=== PATIENT | female | born 1990 | race Two or more races ===

== ENCOUNTER 2024-05-11 14:55 | Emergency (ER) | payer MEDICAID, SELFPAY ==
[2024-05-11 15:20] VITALS: BP 110/78; PULSE 120; TEMP 37.7; O2SAT 98
--- NOTE | 2024-05-11 16:48 | PD.EDRME ---
Rapid Medical Screening Exam RME Arrival date/time: 05/11/24 14:55 34-year-old female presents emergency department complaints of nausea vomiting fever x 3 days. I have greeted and performed a focused initial assessment of this patient. Initial appropriate labs ordered at this time. A comprehensive ED assessment and evaluation of the patient and analysis of all test and completion of medical decision making process will be conducted by additional ED provider. Chief Complaint: Nausea/Vomiting/Diarrhea Time Seen by Provider: 05/11/24 16:47 Vital signs: Vital Signs Temperature 100 F 05/11/24 15:20 Pulse Rate 120 H 05/11/24 15:20 Blood Pressure 110/78 05/11/24 15:20 Pulse Oximetry (%) 98 05/11/24 15:20 Oxygen Delivery Method Room Air 05/11/24 15:20
[2024-05-11 17:37] VITALS: TEMP 37.7
[2024-05-11] MEDS: ACETAMINOPHEN 500 MG TABLET 1000 MG PO (17:37)
[2024-05-11 17:49] LABS: Collection Type, Urine Clean Catch
[2024-05-11 17:58] LABS: Basophils % (Auto) 0 % (0-2.5); Eosinophils % (Auto) 0 % (0-10); Hematocrit 42.9 % (36.0-46.0); Hemoglobin 14.7 g/dL (12.0-16.0); Immature Granulocytes % (Auto) 0 % (0-0); Immature Granulocytes Auto 0.02 Thou/mm3 (0.00-0.00); Lymphocytes # (Auto) 0.5 Thou/mm3 (1.0-4.8); Lymphocytes % (Auto) 5 % (10-50); Mean Corpuscular HGB Conc 34.3 g/dl (31.0-37.0); Mean Corpuscular Hemoglobin 29.5 pg (25.0-35.0); Mean Corpuscular Volume 86 fL (80-100); Monocytes # (Auto) 0.5 Thou/mm3 (0.0-0.8); Monocytes % (Auto) 5 % (0-12); Neutrophils # (Auto) 8.6 Thou/mm3 (1.8-7.7); Neutrophils % (Auto) 90 % (37-80); Nucleated Red Blood Cell % 0 /100 WBC (0); Platelet Count 298 Thou/mm3 (140-440); RDW Standard Deviation 38.5 fL (36.4-46.3); Red Blood Count 4.98 Miln/mm3 (4.00-5.20); White Blood Count 9.6 Thou/mm3 (3.6-11.0)
[2024-05-11 18:05] LABS: HCG Qualitative,Urine Negative
[2024-05-11 18:06] LABS: Bacteria,Urine Rare; Bilirubin,Urine Negative (Negative); Blood,Urine Negative (Negative); Clarity,Urine Clear (Clear/Hazy); Color,Urine Yellow (Lt Yel-Yel); Glucose, Urine Negative (Negative); Ketones,Urine 2+ (Negative); Leukocyte Esterase,Urine Negative (Negative); Nitrite,Urine Negative (Negative); Protein,Urine 1+ (Neg - Trace); RBC,Urine 3 /hpf (0-3); Specific Gravity,Urine 1.041 (1.001-1.035); Squamous Epithelial Cell,Urine 3 /hpf (0-5); Transitional Epi Cells,Urine < 1 /hpf (0-5); WBC,Urine 3 /hpf (0-5)
[2024-05-11 18:13] LABS: Alanine Aminotransferase 28 U/L (10-49); Albumin, Serum 4.8 gm/dL (3.5-5.0); Albumin/Globulin Ratio 1.5 (1.2-2.2); Alkaline Phosphatase 72 U/L (46-116); Anion Gap 7 (7-16); Aspartate Amino Transferase 26 U/L (0-34); BUN/Creatinine Ratio 19 Ratio (12-20); Bilirubin,Total 1.3 mg/dL (0.3-1.2); Blood Urea Nitrogen 15 mg/dL (9-23); Calcium 9.1 mg/dL (8.3-10.6); Calcium (Corrected) 9.1 mg/dL (8.5-10.1); Carbon Dioxide 27.1 mMol/L (20.0-31.0); Chloride 99 mMol/L (98-107); Creatinine (Component) 0.8 mg/dL (0.6-1.3); Globulin 3.3 gm/dL (2.3-3.5); Glucose 127 mg/dL (74-106); Lipase 35 U/L (12-53); Osmolality,Calculated 269 (275-295); Potassium 3.3 mMol/L (3.4-5.1); Sodium 133 mMol/L (136-145); Total Protein 8.1 gm/dL (5.7-8.2); eGFR > 60 See Note
--- NOTE | 2024-05-11 18:47 | PD.EDNV ---
Nausea/Vomit./Diarrhea-RME/HPI General Chief complaint: Nausea/Vomiting/Diarrhea Stated complaint: n/v diarrhea, dehydrated Time Seen by Provider: 05/11/24 16:47 Arrival date/time: 05/11/24 14:55 Limitations: no limitations RME / HPI RME / HPI Narrative: 05/11/24 14:55 34-year-old female presents emergency department complaints of nausea vomiting fever x 3 days. I have greeted and performed a focused initial assessment of this patient. Initial appropriate labs ordered at this time. A comprehensive ED assessment and evaluation of the patient and analysis of all test and completion of medical decision making process will be conducted by additional ED provider. -------- Dr. [facility] Main ED Evaluation: 34-year-old female with multiple episodes of nausea vomiting and diarrhea for the last 1 day. The patient states that she has vomited 10 times since yesterday. No blood. Nonbilious. Diarrhea is improved today. Subjective fever x 1 day. Patient is taking Tylenol and Motrin. She is having a hard time keeping things down but she is not having any abdominal pain, no back pain, no burning when she pees. Related Data Home Medications ?Medication ?Instructions ?Recorded ?Confirmed prenat.vits,sy,yeb-jevv-zdoqc 1 tab PO QDAY 12/05/20 12/05/20 Previous Rx's ?Medication ?Instructions ?Recorded ondansetron 4 mg disintegrating 4 mg PO Q6H PRN nausea and 05/11/24 tablet vomiting #20 tabs Allergies Allergy/AdvReac Type Severity Reaction Status Date / Time No Known Allergies Allergy Verified 05/11/24 14:56 Review of Systems Review of Systems Systems Reviewed: All systems reviewed, normal except as documented Past Medical History Past Medical History NEUROLOGIC: Positive Neurological Disorders and Migraine CARDIAC: Negative Cardiac Disorders or Congestive Heart Failure RESPIRATORY: Negative Chronic Obstructive Pulmonary Disease (COPD) GASTROINTESTINAL: Negative Gastrointestinal Disorders GENITOURINARY: Negative Genitourinary Disorders or Renal Disease MUSCULOSKELETAL: Negative Musculoskeletal Disorders ENDOCRINE: Negative Endocrine Disorders, Diabetes Mellitus Type 1 or Diabetes Mellitus Type 2 HEMATOLOGIC: Positive Blood Disorders and Anemia OTHER HISTORY: Negative Autoimmune Disease, Falls, Blood Transfusions, Blood Transfusion Reaction, Anesthesia Reactions, MRSA, Human Immunodeficiency Virus (HIV), Chicken Pox, Measles or Cancer Family History FAMILY HISTORY: Positive Family Psychiatric Problems (FATHER- ANXIETY / DEPRESSION); Negative Family Respiratory Disorders, Family Cardiac Disorders, Family Gastrointestinal Problems, Family Cancer, Family Surgery or Family Anesthesia Reaction Social History SMOKING STATUS: Never smoker ED Exam Narrative Physical exam: Normal skin turgor, patient appears clinically dehydrated. Not pale. No mottling. General Limitations: Present no limitations General appearance: Present alert and in no apparent distress Head Head exam: Present atraumatic Eye Eye exam: Present normal appearance and PERRL; Absent scleral icterus ENT ENT exam: Present normal exam, normal oropharynx and mucous membranes moist Neck Neck exam: Present normal inspection, full ROM and trachea midline Chest Chest inspection: Present normal inspection and symmetric chest wall rise Respiratory Respiratory exam: Present normal lung sounds bilaterally Cardiovascular Cardiovascular exam: Present regular rate, normal rhythm and normal heart sounds Abdominal Exam Abdominal exam: Present soft and normal bowel sounds Extremities Exam Extremities exam: Present normal inspection and full ROM Back Exam Back exam: Present normal inspection and full ROM Neurological Exam Neurological exam: Present alert and CN II-XII intact Psychiatric Psychiatric exam: Present normal affect and normal mood Skin Skin exam: Present warm and dry Course Quality Measures none Orders Category Date Time Status Bedside COVID-19 Antigen Test NOW Care 05/11/24 16:48 Active Bedside Influenza A&B Antigen Test NOW Care 05/11/24 16:48 Active CBC Stat Lab 05/11/24 17:09 Completed Comprehensive Metabolic Panel Stat Lab 05/11/24 17:09 Completed HCG Qualitative,Urine Stat Lab 05/11/24 17:19 Completed Lipase Stat Lab 05/11/24 17:09 Completed Urinalysis Stat Lab 05/11/24 17:19 Completed Acetaminophen Tab [Tylenol ES Tab] Med 05/11/24 16:49 Discontinued 1,000 mg PO X1 ONE Ondansetron Odt [Zofran Odt] Med 05/11/24 18:48 Discontinued 4 mg PO X1 ONE Sodium Chloride 0.9% 1000 ml [Ns] 1,000 ml Med 05/11/24 18:49 Active IV 999 mls/hr Vital Signs Vital signs: Vital Signs Temperature 100 F 05/11/24 15:20 Pulse Rate 120 H 05/11/24 15:20 Blood Pressure 110/78 05/11/24 15:20 Pulse Oximetry (%) 98 05/11/24 15:20 Oxygen Delivery Method Room Air 05/11/24 15:20 Pulse ox is 98% on room air, which is normal according to my interpretation. Nausea/Vomiting/Diarrhea MDM Narrative MDM Narrative:: Specific gravity is 1. 041 with with potassium 3.3. This is likely from dehydration. Differential diagnosis includes dehydration, electrolyte abnormality, dysuria, UTI, intractable vomiting, marijuana use. Patient will be treated with oral Zofran, IV fluids and discharged home. Patient data External records reviewed:: [facility] previous records (Per chart review, patient has no relevant previous ED visits or admissions to this facility.) Clinical information provided by:: patient Social determinants that could affect healthcare access:: substance use Patient has the following chronic illnesses:: anemia How is presenting disease/condition affected by chronic disease/condition?: uneffected by Evaluation data The following diagnostics were reviewed and interpreted by me:: lab results Lab and/or radiology exams considered but not ordered:: none Interpretation Summary: See above under MDM narrative. Medications / Prescriptions Medications / Prescriptions considered but not ordered:: none Medication administrations:: Medication Administration History Sodium Chloride (Ns) 1,000 mls @ 999 mls/hr IV .Q1H1M ONE Stop: 05/11/24 19:49 Discontinued Medications Acetaminophen (Acetaminophen 500 Mg Tablet) 1,000 mg PO X1 ONE Stop: 05/11/24 16:50 Last Admin: 05/11/24 17:37 Dose: 1,000 mg Documented By: AM Ondansetron HCl (Ondansetron Odt 4 Mg Tabrap) 4 mg PO X1 ONE; Protocol Stop: 05/11/24 18:49 see above Consultations Consultation(s) initiated? (list below): No Diagnosis Nausea Differential Diagnosis: dehydration and other (electrolyte abnormality, dysuria, UTI, intractable vomiting, marijuana use) Most likely diagnosis given after review of the tests above:: see below Admission Indicated Admission indicated?: not indicated Admission Request Was there a request for admission?: No Disposition Plan Disposition Plan: Discharge Discharge Attestation Discharge Attestation: The patient and all family members were given an opportunity to ask questions and understood the discharge instructions. Discharge instructions specifically effects, indications for sooner follow up or return to the emergency department, and the expected course of current diagnosis. Patient condition: Stable Discharge Plan Plan Patient condition on transfer: Stable Prescriptions/Referrals Prescriptions/Med Rec: New ondansetron 4 mg tablet,disintegrating 4 mg PO Q6H PRN (Reason: nausea and vomiting) Qty: 20 0RF No Action Vitamin Tablet 1 tab PO QDAY Referrals: Phylicia Seymour PA-C [Primary Care Provider] - In 1 week Problem List Clinical Impression: Acute dehydration, Acute hypokalemia Patient/Caregiver Discharge Instructions Education Materials: Dehydration, ED Hypokalemia Additional Instructions: Return to emergency department for worsening symptoms, you cannot tolerate liquids, or any other concerns Print Language: Azeri
[2024-05-11] MEDS: ONDANSETRON ODT 4 MG TABRAP PO (19:13)
[2024-05-11] MEDS: SODIUM CHLORIDE 0.9% 1000 ML 1,000 ML 999 ML IV (20:02)
[2024-05-11] MEDS: POTASSIUM CHLORIDE 20 mEq TABCR 40 MEQ PO (21:53)
== END 2024-05-11 21:59 | disposition home or self-care (01) ==
PROVIDERS: Nurse Practitioner Primary Care; Emergency Provider Emergency Medicine; PCP Physician Assistant
DX: E86.0 Dehydration (principal); E87.6 Hypokalemia
CPT/HCPCS: 36415; 80053; 81001; 81025; 83690; 85025; 96360; 99284; J7030; Q0162; A9270